=== PATIENT | female | born 1945 | race Caucasian/White ===

== ENCOUNTER 2018-09-27 05:24 | Inpatient (IN) | payer MEDICARE, OTHER | END 2018-10-01 09:20 | disposition swing bed (61) | LOC: ACUTE CARE 05:24 ==

== ENCOUNTER 2018-10-01 08:52 | Inpatient (IN) | payer MEDICARE, OTHER ==
[2018-10-01] MEDS ORDERED: ACETAMINOPHEN 325 MG PO PRN (09:17)
[2018-10-01] MEDS ORDERED: ALUMINUM/MAGNESIUM 30 ML SUS PO PRN (09:17)
[2018-10-01] MEDS ORDERED: PEG-400/PROPYLENE GLYCOL 1 DROP SOL OP PRN (09:17)
[2018-10-01] MEDS ORDERED: NAPROXEN 500 MG TAB PO PRN (09:17)
[2018-10-01] MEDS ORDERED: TRIAMCINOLONE 0.1% CREAM CRE TOP PRN (09:17)
[2018-10-01] MEDS: APAP/OXYCODONE 1 EACH TABLET PO PRN ×3 (10:40→21:49)
[2018-10-01] MEDS: CLOTRIMAZOLE 1% CREAM TOP SCH (20:25)
[2018-10-01] MEDS: SENNOSIDES A AND B 8.6 MG TAB PO SCH (20:26)
[2018-10-01] MEDS: GABAPENTIN 300 MG CAP PO SCH (20:26)
[2018-10-01] MEDS: LATANOPROST 0.005% SOL EACHEYE SCH (20:26)
[2018-10-02] MEDS: APAP/OXYCODONE 1 EACH TABLET PO PRN ×4 (03:14→22:12)
[2018-10-02] MEDS: RIVAROXABAN 10 MG TAB PO SCH (08:56)
[2018-10-02] MEDS: LEVOTHYROXINE SODIUM 50 MCG TAB PO SCH (08:56)
[2018-10-02] MEDS: GABAPENTIN 300 MG CAP PO SCH ×2 (08:56→22:11)
[2018-10-02] MEDS: CLOTRIMAZOLE 1% CREAM TOP SCH ×2 (08:57→22:10)
[2018-10-02] MEDS: ASCORBIC ACID/COPPER/VITAMIN SGL PO SCH (08:57)
[2018-10-02] MEDS: LATANOPROST 0.005% SOL EACHEYE SCH (22:11)
[2018-10-02] MEDS: SENNOSIDES A AND B 8.6 MG TAB PO SCH (22:11)
[2018-10-03] MEDS: APAP/OXYCODONE 1 EACH TABLET PO PRN ×4 (03:01→20:51)
[2018-10-03] MEDS: GABAPENTIN 300 MG CAP PO SCH ×2 (08:39→20:51)
[2018-10-03] MEDS: LEVOTHYROXINE SODIUM 50 MCG TAB PO SCH (08:39)
[2018-10-03] MEDS: ASCORBIC ACID/COPPER/VITAMIN SGL PO SCH (08:39)
[2018-10-03] MEDS: RIVAROXABAN 10 MG TAB PO SCH (08:39)
[2018-10-03] MEDS: CLOTRIMAZOLE 1% CREAM TOP SCH ×2 (08:41→20:52)
[2018-10-03] MEDS: SENNOSIDES A AND B 8.6 MG TAB PO SCH (20:51)
[2018-10-03] MEDS: LATANOPROST 0.005% SOL EACHEYE SCH (20:53)
[2018-10-04] MEDS: APAP/OXYCODONE 1 EACH TABLET PO PRN ×5 (01:26→20:53)
[2018-10-04] MEDS: LEVOTHYROXINE SODIUM 50 MCG TAB PO SCH ×2 (07:14→08:34)
[2018-10-04] MEDS: GABAPENTIN 300 MG CAP PO SCH ×2 (08:54→20:52)
[2018-10-04] MEDS: ASCORBIC ACID/COPPER/VITAMIN SGL PO SCH (08:54)
[2018-10-04] MEDS: RIVAROXABAN 10 MG TAB PO SCH (08:54)
[2018-10-04] MEDS: CLOTRIMAZOLE 1% CREAM TOP SCH ×3 (08:55→20:51)
[2018-10-04] MEDS: SENNOSIDES A AND B 8.6 MG TAB PO SCH (20:52)
[2018-10-04] MEDS: LATANOPROST 0.005% SOL EACHEYE SCH (20:53)
[2018-10-05] MEDS: APAP/OXYCODONE 1 EACH TABLET PO PRN ×5 (01:09→20:39)
[2018-10-05] MEDS: LEVOTHYROXINE SODIUM 50 MCG TAB PO SCH (06:35)
[2018-10-05] MEDS: CLOTRIMAZOLE 1% CREAM TOP SCH ×2 (08:50→20:20)
[2018-10-05] MEDS: GABAPENTIN 300 MG CAP PO SCH ×2 (08:50→20:40)
[2018-10-05] MEDS: RIVAROXABAN 10 MG TAB PO SCH (08:51)
[2018-10-05] MEDS: ASCORBIC ACID/COPPER/VITAMIN SGL PO SCH (12:32)
[2018-10-05] MEDS: SENNOSIDES A AND B 8.6 MG TAB PO SCH (20:41)
[2018-10-05] MEDS: LATANOPROST 0.005% SOL EACHEYE SCH (20:41)
[2018-10-06] MEDS: APAP/OXYCODONE 1 EACH TABLET PO PRN ×4 (00:06→21:03)
[2018-10-06] MEDS: LEVOTHYROXINE SODIUM 50 MCG TAB PO SCH (06:16)
[2018-10-06] MEDS: ASCORBIC ACID/COPPER/VITAMIN SGL PO SCH (08:25)
[2018-10-06] MEDS: RIVAROXABAN 10 MG TAB PO SCH (08:25)
[2018-10-06] MEDS: GABAPENTIN 300 MG CAP PO SCH ×2 (08:25→21:03)
[2018-10-06] MEDS: CLOTRIMAZOLE 1% CREAM TOP SCH ×2 (10:28→21:02)
[2018-10-06] MEDS: LATANOPROST 0.005% SOL EACHEYE SCH (21:03)
[2018-10-06] MEDS: SENNOSIDES A AND B 8.6 MG TAB PO SCH (21:04)
[2018-10-07] MEDS: APAP/OXYCODONE 1 EACH TABLET PO PRN ×4 (01:36→21:56)
[2018-10-07] MEDS: LEVOTHYROXINE SODIUM 50 MCG TAB PO SCH (06:26)
[2018-10-07] MEDS: CLOTRIMAZOLE 1% CREAM TOP SCH ×2 (08:28→20:53)
[2018-10-07] MEDS: ASCORBIC ACID/COPPER/VITAMIN SGL PO SCH (08:32)
[2018-10-07] MEDS: GABAPENTIN 300 MG CAP PO SCH ×2 (08:32→20:54)
[2018-10-07] MEDS: RIVAROXABAN 10 MG TAB PO SCH (08:32)
[2018-10-07] MEDS: SENNOSIDES A AND B 8.6 MG TAB PO SCH ×2 (20:54→20:55)
[2018-10-07] MEDS: LATANOPROST 0.005% SOL EACHEYE SCH (20:54)
[2018-10-08] MEDS: LEVOTHYROXINE SODIUM 50 MCG TAB PO SCH (06:22)
[2018-10-08] MEDS: APAP/OXYCODONE 1 EACH TABLET PO PRN (06:23)
[2018-10-08 08:02] VITALS: BP 134/80; PULSE 72; RESP 12; TEMP 98.5; O2SAT 99
[2018-10-08] MEDS: GABAPENTIN 300 MG CAP PO SCH (08:41)
[2018-10-08] MEDS: ASCORBIC ACID/COPPER/VITAMIN SGL PO SCH (08:41)
[2018-10-08] MEDS: RIVAROXABAN 10 MG TAB PO SCH (08:42)
[2018-10-08] MEDS: CLOTRIMAZOLE 1% CREAM TOP SCH (12:42)
== END 2018-10-08 17:35 | disposition home health service (06) | DRG 566 ==
LOC: ACUTE CARE 09:25
PROVIDERS: ADMIT Family Medicine; ATTEND Family Medicine
PROC: F01L5YZ Range of Motion and Joint Integrity Assessment of Musculoskeletal System - Lower Back / Lower Extremity using Other Equipment (ICD-10-PCS; principal; 2018-10-01)
PROC: F0130FZ Muscle Performance Assessment of Neurological System - Whole Body using Assistive, Adaptive, Supportive or Protective Equipment (ICD-10-PCS; 2018-10-01)
DX: Z96.641 Presence of right artificial hip joint (principal)
CPT/HCPCS: 36415; 85018; A9270-GY

== ENCOUNTER 2018-11-22 07:42 | Outpatient (CLI) | payer MEDICARE, OTHER ==
[2018-10-08 08:02] VITALS: O2SAT 99
== END 2018-11-22 07:43 | disposition home or self-care (01) | DRG 561 ==
LOC: CONVCARE 07:42
PROVIDERS: ATTEND Orthopaedic Surgery
DX: Z47.1 Aftercare following joint replacement surgery (principal)
CPT/HCPCS: 73502